=== PATIENT | male | born 1965 | race Caucasian/White ===

== ENCOUNTER 2018-10-11 19:40 | Emergency (ER) | payer OTHER ==
[~2018-10-11] VITALS: Ht 165.1 cm; Wt 72.6 kg
[2018-10-11] MEDS ORDERED: NAPR500 PO (21:36)
[2018-10-11] MEDS ORDERED: Cymbalta20 MG PO (21:36)
[2018-10-11] MEDS ORDERED: OMEP20ER PO (21:37)
[2018-10-11] MEDS ORDERED: Mobic15 MG PO (21:37)
[2018-10-11] MEDS ORDERED: Prednisone20 MG PO (21:50)
[2018-10-11] MEDS ORDERED: CYCL10 PO (21:50)
== END 2018-10-11 22:36 | disposition home or self-care (01) ==
LOC: ER 19:40
DX: M54.32 Sciatica, left side (principal); Z79.899 Other long term (current) drug therapy; Z79.52 Long term (current) use of systemic steroids; F32.9 Major depressive disorder, single episode, unspecified; K21.9 Gastro-esophageal reflux disease without esophagitis
CPT/HCPCS: 96374; 99284-25; J1100

== ENCOUNTER 2018-10-11 23:18 | Emergency (ER) | payer OTHER ==
[~2018-10-11] VITALS: Ht 165.1 cm; Wt 72.6 kg
[~2018-10-11 23:18] MED LIST: CYCL10 PO; Cymbalta20 MG PO; Mobic15 MG PO; NAPR500 PO; OMEP20ER PO; Prednisone20 MG PO
== END 2018-10-12 01:49 | disposition home or self-care (01) ==
LOC: ER 23:18
DX: K30 Functional dyspepsia (principal); T50.905A Adverse effect of unspecified drugs, medicaments and biological substances, initial encounter; Z79.899 Other long term (current) drug therapy; Z79.52 Long term (current) use of systemic steroids; F32.9 Major depressive disorder, single episode, unspecified; K21.9 Gastro-esophageal reflux disease without esophagitis
CPT/HCPCS: 99283; J2405